=== PATIENT | female | born 1970 ===

== ENCOUNTER 2020-02-19 17:28 | Outpatient (REF) | payer OTHER, SELFPAY | END 2020-02-19 17:29 | disposition home or self-care (01) | LOC: HO.LAB 17:28 | PROVIDERS: PCP Internal Medicine; Visit Provider Internal Medicine | DX: Z20.828 Contact with and (suspected) exposure to other viral communicable diseases (principal) | CPT/HCPCS: 36415; U0003 ==

== ENCOUNTER 2022-02-21 15:15 | Emergency (ER) | payer OTHER, SELFPAY ==
--- NOTE | ~2022-02-21 | CT_ITS ---
EXAMINATION: CT ABDOMEN AND PELVIS WITHOUT CONTRAST CLINICAL INFORMATION: Lower abdominal pain and constipation COMPARISON: None TECHNIQUE: Multidetector volumetric imaging was performed from the superior aspect of the liver through the pubic symphysis. Sagittal and coronal reformatted images were obtained on the technologist's workstation. This CT examination was performed using dose optimization techniques as appropriate, variously including the following: *Automated exposure control *Adjustment of mA and/or kV according to patient size (this includes techniques or standardized protocols for targeted exams where dose is matched to indication/reason for exam; i.e. extremities or head) *Use of iterative reconstruction technique DLP: 408 mGy-cm FINDINGS: LUNG BASES: The visualized lung bases are unremarkable. LIVER, GALLBLADDER, AND BILIARY TREE: Right hepatic dome is clipped from the [id number]. There is a small 1.7 cm simple hepatic cyst in the medial segment of the left liver lobe. No other liver lesion. Normal hepatic attenuation. No biliary ductal dilation. Status post cholecystectomy. PANCREAS: Unremarkable. SPLEEN: Unremarkable. ADRENAL GLANDS: Unremarkable. KIDNEYS AND URETERS: The kidneys are normal in size, shape, and attenuation. No hydronephrosis, hydroureter, or calculi seen. No perinephric stranding. BLADDER: Unremarkable. GASTROINTESTINAL TRACT: Stomach and small bowel are nondilated. Moderate to large colonic stool burden. No dilated bowel loops. No bowel wall thickening. Normal appendix. No free air or ascites. ABDOMINAL WALL: No significant hernia is appreciated. LYMPH NODES: No lymphadenopathy. VASCULAR: Unremarkable. PELVIC VISCERA: Unremarkable. OSSEOUS STRUCTURES: No acute fracture or suspicious osseous lesion. Mild degenerative disc disease at L5-S1. CT/CT abdomen pelvis wo IV con IMPRESSION: 1. No acute intra-abdominal process identified. 2. Moderate to large colonic stool burden.
[2022-02-21 15:25] VITALS: BP 134/97; PULSE 87; RESP 18; TEMP 36.4; O2SAT 100; BMI 28.1
--- NOTE | 2022-02-21 15:26 | ED_ITS ---
HPI - Abdominal Pain General Chief Complaint: Abdominal Pain <JOEY Lowery - Last Filed: 02/21/22 15:29> Stated Complaint: abdominal pain <JOEY Lowery - Last Filed: 02/21/22 15:29> Time Seen by Provider: 02/21/22 18:29 <JOEY Lowery - Last Filed: 02/21/22 15:29> Source: patient <Miguelangel White MD - Last Filed: 02/21/22 19:09> Mode of arrival: ambulatory <Miguelangel White MD - Last Filed: 02/21/22 19:09> Limitations: no limitations <Miguelangel White MD - Last Filed: 02/21/22 19:09> History of Present Illness HPI narrative: 52-year-old female came in for evaluation of an abdominal pain for the past month. Pain is localized to the lower abdomen feels like cramps at an intermittent moderate in severity 08/20, patient been having change in her bowel movement habits used to go every other day until month ago now she is going once a week with a very hard stool last bowel movement was yesterday with a hard stool patient noticed bright red blood with the stool yesterday, no nausea, no vomiting in particular no vomiting blood. No loss or gain of weight. No urinary frequency, no hematuria, no dysuria. Never had intra-abdominal surgery, last colonoscopy was many years ago. <Miguelangel White MD - Last Filed: 02/21/22 19:09> Related Data Allergies/Adverse Reactions: Allergies Allergy/AdvReac Type Severity Reaction Status Date / Time No Known Allergies Allergy Verified 02/21/22 15:29 <JOEY Lowery - Last Filed: 02/21/22 15:29> Review of Systems Review of Systems All other systems are reviewed and are negative Constitutional: Reports as per HPI and Reports no additional constitutional complaints Eyes: Reports as per HPI and Reports no additional eye complaints Reports system reviewed and no additional complaints, except as documented Cardiovascular: Reports as per HPI and Reports no additional cardiovascular complaints Respiratory: Reports as per HPI and Reports no additional respiratory complaints Gastrointestinal: Reports as per HPI and Reports no additional gastrointestinal complaints Genitourinary: Reports no additional female genitourinary complaints Musculoskeletal: Reports no additional musculoskeletal complaints Skin/Breast: Reports system reviewed and no additional complaints, except as docu Psychiatric: Reports no additional psychiatric complaints Endocrine: Reports no additional endocrine complaints Hematologic/Lymphatic: Reports no additional hematologic/lymphatic complaints Allergic/Immunologic: Reports no additional allergic/immunologic complaints Reports system reviewed and no additional complaints, except as documented and Reports Abnormal speech present <Miguelangel White MD - Last Filed: 02/21/22 19:09> [facility] Social History Social History: Social History Advance Directives: No Advance Directives Information Provided: No <JOEY Lowery - Last Filed: 02/21/22 15:29> Physical Exam ED Vital Signs: Vital Signs - 24 hr 02/21/22 15:25 Temperature 97.5 F Pulse Rate 87 Respiratory Rate 18 Blood Pressure 134/97 H Pulse Oximetry 100 Oxygen Delivery Method Room Air BMI result Body Mass Index 28.1 <JOEY Lowery - Last Filed: 02/21/22 15:29> Vital Signs - 24 hr 02/21/22 15:25 Temperature 97.5 F Pulse Rate 87 Respiratory Rate 18 Blood Pressure 134/97 H Pulse Oximetry 100 Oxygen Delivery Method Room Air BMI result Body Mass Index 28.1 Vital signs have been reviewed as appeared to be correct. Blood pressure normal. Heart rate normal. Respiration rate normal. Temperature normal. Oxygen saturation normal. <Miguelangel White MD - Last Filed: 02/21/22 19:09> Appearance: Alert. Oriented X3. No acute distress. Head: Normal external exam. Normocephalic. Atraumatic. No Collins signs noted. No raccoon eyes noted Eyes: PERRLA. EOMI. Conjunctiva and sclera normal. Eyelids normal. ENT: TM's Normal. Pharynx normal. Uvula midline. Moist mucous membranes. No trismus noted. No drooling noted. No muffled voice noted. Neck: Normal inspection. Neck supple. FROM. No adenopathy. Thyroid Normal. No meningeal signs. No neck mass noted. CVS: Normal heart rate and rhythm. Heart sound normal. No murmurs noted. Pulses normal throughout. Respiratory: No respiratory distress. Painless inspiration. Breath sounds normal. No wheezes/rales/rhonchi noted. Chest nontender. No accessory muscle usage noted or decreased air movement noted. Abdomen: Soft and nontender. Bowel sounds normal in all 4 quadrants. No distention noted. No organomegaly noted. No visible injury noted. Rectal exam: No stool in the vault, no external or internal hemorrhoid, no blood in the stool. Back: No CVA tenderness. Full range of motion noted. Skin: Skin warm and dry. Normal skin color. Normal skin turgor. No ra shes/lesions/lacerations noted. Extremities: No lower extremity edema. Extremities exhibit normal range of motion. Extremities nontender. Neuro: Oriented X 3. Cranial nerve exam: II-XII are grossly intact No motor deficit. No sensory deficit. Reflexes normal. <Miguelangel White MD - Last Filed: 02/21/22 19:09> Course Course Course Narrative: RME - 52 yo female with history of DM and HTN presents to the ER for evaluation of intermittent lower abdominal pains and constipation for the last 1 month. She reports only have 3 BMS in the last 1 month. Has dark and red blood in her stools last night. Will get labs and CT scan for further evaluation. <JOEY Lowery - Last Filed: 02/21/22 15:29> Reevaluation(s) Reevaluation #1: 52-year-old female with recent change in the bowel movement habits patient is more frequently constipated, no history of loss or gain weight. No nausea, no vomiting CT is consistent with constipation no active GI bleeding. Will give 1 dose of milk of magnesia in the ED discharge to follow-up with g astroenterologist as an outpatient to consider colonoscopy. <Miguelangel White MD - Last Filed: 02/21/22 19:09> Time: 19:02 <Miguelangel White MD - Last Filed: 02/21/22 19:09> Medical Decision Making Differential Diagnosis Differential Diagnoses: The differential diagnosis associated with the presentation includes (Constipation, SBO, acute appendicitis, UTI, pyelonephritis, pancreatitis, hepatobiliary disease.) <Miguelangel White MD - Last Filed: 02/21/22 19:09> Lab Data MDM Lab Attestation statement: I reviewed the patient's lab results. <Miguelangel White MD - Last Filed: 02/21/22 19:09> Result Diagrams: 02/21/22 17:45 02/21/22 17:45 <JOEY Lowery - Last Filed: 02/21/22 15:29> Labs: Lab Results 02/21/22 02/21/22 02/21/22 Range/Units 17:45 17:45 17:57 WBC 6.9 (4.8-10.8) X10*3/uL RBC 5.31 (4.20-5.50) X10*6/uL Hgb 13.2 (12.0-16.0) g/dl Hct 42.3 (37.0-47.0) % MCV 79.7 L (80.0-98.0) fL MCH 24.9 L (27.0-33.0) pg MCHC 31.2 (31.0-35.0) g/dl RDW 15.0 (11.0-16.0) % Plt Count 294 (160-400) X10*3/uL MPV 8.8 L (9.4-12.3) fL Immature Gran % (Auto) 0.3 (0.0-0.4) % Neut % (Auto) 47.1 (45-73) % Lymph % (Auto) 43.0 H (20-40) % [place] % (Auto) 7.2 (2-11) % Eos % (Auto) 2.3 (0-4) % Baso % (Auto) 0.1 (0-2) % Lymph # (Auto) 3.0 (1.2-4.9) X10*3/uL [place] # (Auto) 0.5 (0.1-1.2) X10*3/uL Eos # (Auto) 0.2 (0.0-0.4) X10*3/uL Baso # (Auto) 0.0 (0.0-0.2) X10*3/uL Abs Immat Gran (auto) 0.02 (0.00-0.03) X10*3/uL Absolute Neuts (auto) 3.3 (2.0-8.3) x10*3/uL Absolute Nucleated RBC 0.000 (0.0-0.012) X10*3/uL Nucleated RBC % (auto) 0.0 (0.0-0.2) /100WBC Sodium 140 (135-145) mmol/L Potassium 4.4 (3.3-5.1) mmol/L Chloride 103 (96-108) mmol/L Carbon Dioxide 29 (22-29) mmol/L Anion Gap 12 (12-20) BUN 15 (9-16) mg/dL Creatinine 0.77 (0.5-1.4) mg/dL Estim Creat Clear Calc 79.1 Estimated GFR > 60 Random Glucose 143 H (60-115) mg/dL Calcium 10.7 H (8.4-10.2) mg/dL Magnesium 1.9 (1.6-2.6) mg/dL Total Bilirubin 0.2 (0.0-1.0) mg/dL Direct Bilirubin < 0.2 (0.0-0.5) mg/dL AST 33 H (5-31) U/L ALT 75 H (0-31) U/L Alkaline Phosphatase 110 (39-117) U/L Total Protein 8.3 H (6.5-8.0) g/dL Albumin 4.6 (3.5-5.0) g/dL Urine Color Yellow Urine Appearance Clear Urine pH 6.0 (5.0-9.0) Ur Specific [place] 1.010 (1.005-1.025) Urine Protein Negative (Neg-Trace) mg/dL Urine Glucose (UA) Negative (Negative) mg/dL Urine Ketones Negative (Negative) mg/dL Urine Blood Negative (Negative) Urine Nitrite Negative (Negative) Ur Leukocyte Esterase Small (1+) H (Negative) Urine RBC 0-2 (0-2) /HPF Urine WBC 11-20 H (0-5) /HPF Ur Squamous Epith Cells 6-10 (0-2) /HPF Urine Bacteria 1+ (None Seen) Hyaline Casts 0-2 (0-2) /LPF Stool Occult Blood (NEGATIVE) 02/21/22 Range/Units 18:36 WBC (4.8-10.8) X10*3/uL RBC (4.20-5.50) X10*6/uL Hgb (12.0-16.0) g/dl Hct (37.0-47.0) % MCV (80.0-98.0) fL MCH (27.0-33.0) pg MCHC (31.0-35.0) g/dl RDW (11.0-16.0) % Plt Count (160-400) X10*3/uL MPV (9.4-12.3) fL Immature Gran % (Auto) (0.0-0.4) % Neut % (Auto) (45-73) % Lymph % (Auto) (20-40) % [place] % (Auto) (2-11) % Eos % (Auto) (0-4) % Baso % (Auto) (0-2) % Lymph # (Auto) (1.2-4.9) X10*3/uL [place] # (Auto) (0.1-1.2) X10*3/uL Eos # (Auto) (0.0-0.4) X10*3/uL Baso # (Auto) (0.0-0.2) X10*3/uL Abs Immat Gran (auto) (0.00-0.03) X10*3/uL Absolute Neuts (auto) (2.0-8.3) x10*3/uL Absolute Nucleated RBC (0.0-0.012) X10*3/uL Nucleated RBC % (auto) (0.0-0.2) /100WBC Sodium (135-145) mmol/L Potassium (3.3-5.1) mmol/L Chloride (96-108) mmol/L Carbon Dioxide (22-29) mmol/L Anion Gap (12-20) BUN (9-16) mg/dL Creatinine (0.5-1.4) mg/dL Estim Creat Clear Calc Estimated GFR Random Glucose (60-115) mg/dL Calcium (8.4-10.2) mg/dL Magnesium (1.6-2.6) mg/dL Total Bilirubin (0.0-1.0) mg/dL Direct Bilirubin (0.0-0.5) mg/dL AST (5-31) U/L ALT (0-31) U/L Alkaline Phosphatase (39-117) U/L Total Protein (6.5-8.0) g/dL Albumin (3.5-5.0) g/dL Urine Color Urine Appearance Urine pH (5.0-9.0) Ur Specific [place] (1.005-1.025) Urine Protein (Neg-Trace) mg/dL Urine Glucose (UA) (Negative) mg/dL Urine Ketones (Negative) mg/dL Urine Blood (Negative) Urine Nitrite (Negative) Ur Leukocyte Esterase (Negative) Urine RBC (0-2) /HPF Urine WBC (0-5) /HPF Ur Squamous Epith Cells (0-2) /HPF Urine Bacteria (None Seen) Hyaline Casts (0-2) /LPF Stool Occult Blood NEGATIVE (NEGATIVE) <JOEY Lowery - Last Filed: 02/21/22 15:29> Lab Results 02/21/22 02/21/22 02/21/22 Range/Units 17:45 17:45 17:57 WBC 6.9 (4.8-10.8) X10*3/uL RBC 5.31 (4.20-5.50) X10*6/uL Hgb 13.2 (12.0-16.0) g/dl Hct 42.3 (37.0-47.0) % MCV 79.7 L (80.0-98.0) fL MCH 24.9 L (27.0-33.0) pg MCHC 31.2 (31.0-35.0) g/dl RDW 15.0 (11.0-16.0) % Plt Count 294 (160-400) X10*3/uL MPV 8.8 L (9.4-12.3) fL Immature Gran % (Auto) 0.3 (0.0-0.4) % Neut % (Auto) 47.1 (45-73) % Lymph % (Auto) 43.0 H (20-40) % [place] % (Auto) 7.2 (2-11) % Eos % (Auto) 2.3 (0-4) % Baso % (Auto) 0.1 (0-2) % Lymph # (Auto) 3.0 (1.2-4.9) X10*3/uL [place] # (Auto) 0.5 (0.1-1.2) X10*3/uL Eos # (Auto) 0.2 (0.0-0.4) X10*3/uL Baso # (Auto) 0.0 (0.0-0.2) X10*3/uL Abs Immat Gran (auto) 0.02 (0.00-0.03) X10*3/uL Absolute Neuts (auto) 3.3 (2.0-8.3) x10*3/uL Absolute Nucleated RBC 0.000 (0.0-0.012) X10*3/uL Nucleated RBC % (auto) 0.0 (0.0-0.2) /100WBC Sodium 140 (135-145) mmol/L Potassium 4.4 (3.3-5.1) mmol/L Chloride 103 (96-108) mmol/L Carbon Dioxide 29 (22-29) mmol/L Anion Gap 12 (12-20) BUN 15 (9-16) mg/dL Creatinine 0.77 (0.5-1.4) mg/dL Estim Creat Clear Calc 79.1 Estimated GFR > 60 Random Glucose 143 H (60-115) mg/dL Calcium 10.7 H (8.4-10.2) mg/dL Magnesium 1.9 (1.6-2.6) mg/dL Total Bilirubin 0.2 (0.0-1.0) mg/dL Direct Bilirubin < 0.2 (0.0-0.5) mg/dL AST 33 H (5-31) U/L ALT 75 H (0-31) U/L Alkaline Phosphatase 110 (39-117) U/L Total Protein 8.3 H (6.5-8.0) g/dL Albumin 4.6 (3.5-5.0) g/dL Urine Color Yellow Urine Appearance Clear Urine pH 6.0 (5.0-9.0) Ur Specific [place] 1.010 (1.005-1.025) Urine Protein Negative (Neg-Trace) mg/dL Urine Glucose (UA) Negative (Negative) mg/dL Urine Ketones Negative (Negative) mg/dL Urine Blood Negative (Negative) Urine Nitrite Negative (Negative) Ur Leukocyte Esterase Small (1+) H (Negative) Urine RBC 0-2 (0-2) /HPF Urine WBC 11-20 H (0-5) /HPF Ur Squamous Epith Cells 6-10 (0-2) /HPF Urine Bacteria 1+ (None Seen) Hyaline Casts 0-2 (0-2) /LPF Stool Occult Blood (NEGATIVE) 02/21/22 Range/Units 18:36 WBC (4.8-10.8) X10*3/uL RBC (4.20-5.50) X10*6/uL Hgb (12.0-16.0) g/dl Hct (37.0-47.0) % MCV (80.0-98.0) fL MCH (27.0-33.0) pg MCHC (31.0-35.0) g/dl RDW (11.0-16.0) % Plt Count (160-400) X10*3/uL MPV (9.4-12.3) fL Immature Gran % (Auto) (0.0-0.4) % Neut % (Auto) (45-73) % Lymph % (Auto) (20-40) % [place] % (Auto) (2-11) % Eos % (Auto) (0-4) % Baso % (Auto) (0-2) % Lymph # (Auto) (1.2-4.9) X10*3/uL [place] # (Auto) (0.1-1.2) X10*3/uL Eos # (Auto) (0.0-0.4) X10*3/uL Baso # (Auto) (0.0-0.2) X10*3/uL Abs Immat Gran (auto) (0.00-0.03) X10*3/uL Absolute Neuts (auto) (2.0-8.3) x10*3/uL Absolute Nucleated RBC (0.0-0.012) X10*3/uL Nucleated RBC % (auto) (0.0-0.2) /100WBC Sodium (135-145) mmol/L Potassium (3.3-5.1) mmol/L Chloride (96-108) mmol/L Carbon Dioxide (22-29) mmol/L Anion Gap (12-20) BUN (9-16) mg/dL Creatinine (0.5-1.4) mg/dL Estim Creat Clear Calc Estimated GFR Random Glucose (60-115) mg/dL Calcium (8.4-10.2) mg/dL Magnesium (1.6-2.6) mg/dL Total Bilirubin (0.0-1.0) mg/dL Direct Bilirubin (0.0-0.5) mg/dL AST (5-31) U/L ALT (0-31) U/L Alkaline Phosphatase (39-117) U/L Total Protein (6.5-8.0) g/dL Albumin (3.5-5.0) g/dL Urine Color Urine Appearance Urine pH (5.0-9.0) Ur Specific [place] (1.005-1.025) Urine Protein (Neg-Trace) mg/dL Urine Glucose (UA) (Negative) mg/dL Urine Ketones (Negative) mg/dL Urine Blood (Negative) Urine Nitrite (Negative) Ur Leukocyte Esterase (Negative) Urine RBC (0-2) /HPF Urine WBC (0-5) /HPF Ur Squamous Epith Cells (0-2) /HPF Urine Bacteria (None Seen) Hyaline Casts (0-2) /LPF Stool Occult Blood NEGATIVE (NEGATIVE) <Miguelangel White MD - Last Filed: 02/21/22 19:09> Independent Interpretation I performed an independent interpretation of an: CT Scan (Abdomen and pelvis:1. No acute intra-abdominal process identified. 2. Moderate to large colonic stool burden. ) <Miguelangel White MD - Last Filed: 02/21/22 19:09> Radiology Impression Discussion of test interpretation with radiology: I have reviewed the radiologist's reading. <Miguelangel White MD - Last Filed: 02/21/22 19:09> Discharge Plan Discharge Clinical Impression: Constipation <JOEY Lowery - Last Filed: 02/21/22 15:29> Patient Disposition: Home, Self-Care <JOEY Lowery - Last Filed: 02/21/22 15:29> Instructions: Constipation (ED) <JOEY Lowery - Last Filed: 02/21/22 15:29> Referrals: Kathleen Carranza MD [Primary Care Provider] - Kehinde Thomas MD [Physician] - <JOEY Lowery - Last Filed: 02/21/22 15:29> Stand Alone Forms: Work/School Release <JOEY Lowery - Last Filed: 02/21/22 15:29>
[2022-02-21 17:59] LABS: MANUAL DIFF FLAG NO
[2022-02-21 18:01] LABS: Basophils Percent Auto 0.1 % (0-2); Eosinophils Absolute Auto 0.2 X10*3/uL (0.0-0.4); Eosinophils Percent Auto 2.3 % (0-4); Hematocrit 42.3 % (37.0-47.0); Hemoglobin 13.2 g/dl (12.0-16.0); Imm Gran Abs Auto 0.02 X10*3/uL (0.00-0.03); Imm Gran Pct Auto 0.3 % (0.0-0.4); Mean Corpuscular HGB Conc 31.2 g/dl (31.0-35.0); Mean Corpuscular Hemoglobin 24.9 pg (27.0-33.0); Mean Corpuscular Volume 79.7 fL (80.0-98.0); Mean Platelet Volume 8.8 fL (9.4-12.3); Monocytes Absolute Auto 0.5 X10*3/uL (0.1-1.2); Monocytes Percent Auto 7.2 % (2-11); Neutrophils Absolute Auto 3.3 x10*3/uL (2.0-8.3); Neutrophils Percent Auto 47.1 % (45-73); Platelet Count 294 X10*3/uL (160-400); Red Blood Count 5.31 X10*6/uL (4.20-5.50); White Blood Count 6.9 X10*3/uL (4.8-10.8)
[2022-02-21 18:19] LABS: Appearance Urine Clear; Color Urine Yellow; Glucose Urine UA Negative (Negative); Leukocyte Esterase Urine Small (1+) (Negative); Nitrite Urine Negative (Negative); UMIC TRIGGER UACC YES; Urine Blood Negative (Negative); Urine Ketones Negative (Negative); Urine Protein Negative (Neg-Trace)
[2022-02-21 18:23] LABS: Bacteria Urine 1+ (None Seen); Hyaline Casts Urine 0-2 /LPF (0-2); RBC Urine 0-2 /HPF (0-2); UACC Culture Trigger YES
[2022-02-21 18:43] LABS: Alanine Aminotransferase 75 U/L (0-31); Albumin Level 4.6 g/dL (3.5-5.0); Alkaline Phosphatase 110 U/L (39-117); Anion Gap 12 (12-20); Aspartate Amino Transferase 33 U/L (5-31); Bilirubin Direct < 0.2 mg/dL (0.0-0.5); Bilirubin Total 0.2 mg/dL (0.0-1.0); Blood Urea Nitrogen 15 mg/dL (9-16); Calcium 10.7 mg/dL (8.4-10.2); Carbon Dioxide 29 mmol/L (22-29); Chloride 103 mmol/L (96-108); Creatinine Clr Calc Pharmacy 79.1; Estimated Glomerular Filt Rate > 60; Glucose Random 143 mg/dL (60-115); Magnesium 1.9 mg/dL (1.6-2.6); Potassium 4.4 mmol/L (3.3-5.1); Sodium 140 mmol/L (135-145); Total Protein 8.3 g/dL (6.5-8.0)
[2022-02-21 18:50] LABS: OBS Int Ctl Valid YES; OBS1 NEGATIVE (NEGATIVE)
[2022-02-21] MEDS: Milk of Magnesia 30 ML ORAL.SUSP PO (19:22)
[2022-02-21] MEDS: Nitrofurantoin Monohyd/M-Cryst 100 MG CAPSULE PO (19:22)
== END 2022-02-21 19:30 | disposition home or self-care (01) ==
PROVIDERS: Physician Assistant; Emergency Provider Emergency Medicine; PCP Internal Medicine
DX: K59.00 Constipation, unspecified (principal); I10 Essential (primary) hypertension; Z79.899 Other long term (current) drug therapy
CPT/HCPCS: 36415; 74176; 80048; 80076; 81001; 82272; 83735; 85025; 87086; 99282; 99284

== ENCOUNTER 2022-10-15 13:42 | Emergency (ER) | payer OTHER, SELFPAY ==
[2022-10-15 14:12] VITALS: BP 130/85; PULSE 104; RESP 16; TEMP 37.2; O2SAT 97; BMI 28.0
--- NOTE | 2022-10-15 14:13 | ED_ITS ---
HPI - General Adult General Chief complaint: Upper Respiratory Symptoms Stated complaint: body aches headache sore throat Time Seen by Provider: 10/15/22 16:48 Source: patient and RN notes reviewed Mode of arrival: ambulatory Limitations: no limitations History of Present Illness HPI narrative: This is a 52-year-old female presenting to the emergency department with complaints of headache, sore throat, nasal congestion, cough, subjective fevers, and body aches x 2 days. Patient reports that her son was diagnosed with strep throat over the weekend and she is concerned that she also has this. She has been taking ibuprofen inconsistently for her symptoms which has provided her with some relief. Patient denies any chest pain or shortness of breath. Denies abdominal pain, nausea, vomiting, or diarrhea. No other complaints or concerns at this time. complaint: COVID Onset (ago): day(s) Quality: aching Pain Consistency: constant Relieving factors: none Exacerbating factors: none Associated symptoms: cough, fever/chills and headaches Treatments prior to arrival: none Related Data Previous Rx's Medication Instructions Recorded nitrofurantoin 100 mg PO Q12H 7 days #14 caps 02/21/22 monohydrate/macrocrystals 100 mg capsule (Macrobid) acetaminophen 500 mg tablet 1,000 mg PO QID PRN fever or pain 10/15/22 (Tylenol Extra Strength) #45 tabs ibuprofen 600 mg tablet 600 mg PO Q6H PRN fever or pain 10/15/22 #45 tabs Allergies Allergy/AdvReac Type Severity Reaction Status Date / Time No Known Allergies Allergy Verified 10/15/22 14:15 Review of Systems Review of Systems: Yes all other systems are reviewed and are negative Constitutional: Constitutional: Reports as per [facility] Social History Social History Advance Directives: No Advance Directives Information Provided: No Physical Exam ED Vital Signs: Vital Signs - 24 hr 10/15/22 14:12 Temperature 98.9 F Pulse Rate 104 H Respiratory Rate 16 Blood Pressure 130/85 Pulse Oximetry 97 Oxygen Delivery Method Room Air BMI result Body Mass Index 28.0 Const General: cooperative, comfortable and no acute distress Orientation/consciousness: patient oriented x3 Limitations: no limitations HENMT Other: Oropharynx is non erythematous, no tonsillar hypertrophy or exudates. Uvula is midline. Handling secretions well without any trismus, drooling, or dysphonia. Head: Yes normal to inspection, Yes normocephalic and Yes atraumatic Ears: hearing grossly normal bilaterally and TM's normal bilaterally General nose exam: Normal external nose present Face and sinus: Yes normal facial exam Mouth: Normal oral and palatal mucosa present, oropharynx normal and moist mucous membranes Throat: Yes posterior oropharynx normal Eyes General: appearance normal, both eyes and all related structures Eyelids: Yes eyelids normal Conjunctivae: conjunctivae normal Sclerae: sclerae normal Pupils: Equal, round and reactive pupils present EOM: EOMs intact bilaterally Neck Neck: Yes normal visual inspection, Yes full ROM and Yes no lymphadenopathy Lymphatic: no lymphadenopathy noted Chest Chest palpation & inspection: normal inspection of the chest Resp Effort & Inspection: normal respiratory effort and able to speak in complete sentences Auscultation: clear to auscultation bilaterally, no crackles, no rales, no rhonchi and no wheezes Cardio Rate: regular rate Rhythm: regular rhythm Heart sounds: S1 normal heart sound present and S2 normal heart sound present GI Inspection: Yes normal to inspection Skin General skin exam: no rashes or lesions noted Trauma: no lacerations or abrasions Wounds: no wounds Neuro General: patient oriented x3 and moves all extremities Cranial nerves: Yes Equal, round and reactive pupils present Extrem General: Yes normal to inspection Right upper extremity: normal to inspection Left upper extremity: normal to inspection Right lower extremity: normal to inspection Left lower extremity: normal to inspection Course Course Course Narrative: This is a rapid medical exam: Additional HPI, ROS, PE not included below will be deferred to primary provider. Patient is a 52-year-old female presenting to the emergency department with complaint of cough producive of clear sputum, sore throat, headaches, fever, and nasal congestion since Saturday. States son was recently treated for strep throat. was able to work this morning. Took ibuprofen for symptoms today. Plan: Covid/flu, strep Medical Decision Making Medical Decision Making [facility] Narrative: 52-year-old female presenting to the emergency department for evaluation of headache, sore throat, congestion, cough, subjective fevers and body aches x2 days. On arrival, patient mildly tachycardic at 104bpm otherwise all vital signs are within normal limits. Presentation he concerning for influenza versus COVID versus strep pharyngitis. Lungs are clear to auscultation, patient is under no acute distress. Handling secretions well, oropharynx is mildly erythematous without any evidence of peritonsillar abscess or tonsillar hypertrophy. Swabs were collected, patient positive for COVID-19. Discussed these results with patient. Discharge with ibuprofen and Tylenol, given quarantine precautions. Advised to return any new or worsening symptoms. Patient understands and agrees with plan. Patient stable for discharge. Differential Diagnosis Differential Diagnoses: The differential diagnosis associated with the presentation includes See above Lab Data MDM Lab Attestation statement: I reviewed the patient's lab results. COVID positive Labs: Lab Results 10/15/22 10/15/22 10/15/22 Range/Units 14:28 14:28 14:28 COVID-19 ([facility]) Positive A (Negative) COVID-19 Clin Com See Note Influenza Type A ([facility]) Negative (Negative) Influenza Type B ([facility]) Negative (Negative) Influenza A & B Note See Note S. pyogenes GrpA [facility] Negative (Negative) Discharge Plan Discharge Clinical Impression: COVID-19 Patient Disposition: Home, Self-Care Additional Instructions: You tested positive for COVID today. You tested negative for flu, and strep throat COVID is a virus that you treat symptomatically, you do not need antibiotics for this. Take ibuprofen and Tylenol, alternate between these medications. You can take ibuprofen 600 mg every 6 hours, and Tylenol 1g every 8 hours. Please space out ibuprofen and Tylenol dosage with 2 hours of between. If any new or worsening symptoms occur, including but not limited to shortness of breath, or chest pain, please return for re-evaluation. You should be self isolating for the next 5 days. After the 5th day you may going to the public however wear mask if your having symptoms. Please follow all CDC guidelines for further recommendations. Prescriptions: New ibuprofen 600 mg tablet 600 mg PO Q6H PRN (Reason: fever or pain) Qty: 45 0RF acetaminophen [Tylenol Extra Strength] 500 mg tablet 1,000 mg PO QID PRN (Reason: fever or pain) Qty: 45 0RF No Action nitrofurantoin monohyd/m-cryst [Macrobid] 100 mg capsule 100 mg PO Q12H 7 Days Qty: 14 0RF Rx Instructions: must administer with a meal/food Stand Alone Forms: Work/School Release Interventions: ED Discharge Assessment Last Done: 10/15/22 18:16 Discharge Date/Time: 10/15/22 18:16
[2022-10-15 14:52] LABS: IDNOW Serial# 08D9AD1C; Strep A Nucleic Acid Negative (Negative)
[2022-10-15 14:53] LABS: COVID-19 Test Positive (Negative); IDNOW Serial# BCCEAD1C
[2022-10-15 14:57] LABS: IDNOW Serial# 9DB6401D; Influenza A Negative (Negative); Influenza B2 Negative (Negative)
== END 2022-10-15 18:16 | disposition home or self-care (01) ==
PROVIDERS: Registered Nurse Emergency; Emergency Provider Emergency Medicine; PCP Internal Medicine
DX: U07.1 COVID-19 (principal); M79.10 Myalgia, unspecified site; R51.9 Headache, unspecified; R05.9 Cough, unspecified; R50.9 Fever, unspecified; Z79.899 Other long term (current) drug therapy
CPT/HCPCS: 87502; 87635; 87651; 99282; 99283

== ENCOUNTER 2023-01-29 15:59 | Emergency (ER) | payer OTHER, SELFPAY ==
--- NOTE | 2023-01-29 16:01 | ED.GENADULT ---
HPI - General Adult General Chief complaint: General Medical Stated complaint: chest pain Related Data Previous Rx's ?Medication ?Instructions ?Recorded nitrofurantoin 100 mg PO Q12H 7 days #14 caps 02/21/22 monohydrate/macrocrystals 100 mg capsule (Macrobid) acetaminophen 500 mg tablet 1,000 mg (2 x 500 mg) PO QID PRN 10/15/22 (Tylenol Extra Strength) fever or pain #45 tabs ibuprofen 600 mg tablet 600 mg PO Q6H PRN fever or pain 10/15/22 #45 tabs Allergies Allergy/AdvReac Type Severity Reaction Status Date / Time No Known Allergies Allergy Verified 10/15/22 14:15 PENDING SALE TO [facility] Social History Social History Advance Directives: No Advance Directives Information Provided: No Physical Exam ED Vital Signs: BMI result Body Mass Index 29.8 Course Course Course Narrative: RME 53 year old female presents for evaluation of chest pain and abdominal pain. Plan for labs, EKG, chest x-ray, UA Medical Decision Making Lab Data 01/29/23 16:31 01/29/23 16:31 Labs: Lab Results 01/29/23 Range/Units 16:31 WBC 5.8 (4.8-10.8) X10*3/uL RBC 4.55 (4.20-5.50) X10*6/uL Hgb 12.3 (12.0-16.0) g/dl Hct 38.1 (37.0-47.0) % MCV 83.7 (80.0-98.0) fL MCH 27.0 (27.0-33.0) pg MCHC 32.3 (31.0-35.0) g/dl RDW 14.4 (11.0-16.0) % Plt Count 248 (160-400) X10*3/uL MPV 8.6 L (9.4-12.3) fL Immature Gran % (Auto) 0.3 (0.0-0.4) % Neut % (Auto) 47.0 (45-73) % Lymph % (Auto) 42.1 H (20-40) % Calhoun % (Auto) 8.3 (2-11) % Eos % (Auto) 2.1 (0-4) % Baso % (Auto) 0.2 (0-2) % Lymph # (Auto) 2.4 (1.2-4.9) X10*3/uL Calhoun # (Auto) 0.5 (0.1-1.2) X10*3/uL Eos # (Auto) 0.1 (0.0-0.4) X10*3/uL Baso # (Auto) 0.0 (0.0-0.2) X10*3/uL Abs Immat Gran (auto) 0.02 (0.00-0.03) X10*3/uL Absolute Neuts (auto) 2.7 (2.0-8.3) x10*3/uL Absolute Nucleated RBC 0.000 (0.0-0.012) X10*3/uL Nucleated RBC % (auto) 0.0 (0.0-0.2) /100WBC PT 11.2 (11.1-13.3) SEC INR 0.9 (0.9-1.1) Sodium 140 (135-145) mmol/L Potassium 4.2 (3.3-5.1) mmol/L Chloride 107 (96-108) mmol/L Carbon Dioxide 26 (22-29) mmol/L Anion Gap 11 L (12-20) BUN 14 (9-16) mg/dL Creatinine 0.84 (0.5-1.4) mg/dL Estim Creat Clear Calc 67.9 Estimated GFR > 60 Random Glucose 142 H (60-115) mg/dL Calcium 9.8 D (8.4-10.2) mg/dL Total Bilirubin 0.1 (0.0-1.0) mg/dL AST 48 H (5-31) U/L ALT 98 H (0-31) U/L Alkaline Phosphatase 76 (39-117) U/L Troponin I High Sens < 2.7 (<3.5-17.0) ng/L Total Protein 7.7 (6.5-8.0) g/dL Albumin 4.3 (3.5-5.0) g/dL Lipase 57 (8-78) U/L Discharge Plan Discharge Clinical Impression: Chest pain Patient Disposition: Left W/O Completing Treatment Prescriptions: No Action nitrofurantoin monohyd/m-cryst [Macrobid] 100 mg capsule 100 mg PO Q12H 7 Days Qty: 14 0RF Rx Instructions: must administer with a meal/food ibuprofen 600 mg tablet 600 mg PO Q6H PRN (Reason: fever or pain) Qty: 45 0RF acetaminophen [Tylenol Extra Strength] 500 mg tablet 1,000 mg PO QID PRN (Reason: fever or pain) Qty: 45 0RF Discharge Date/Time: 01/29/23 17:53
[2023-01-29 16:35] VITALS: BP 131/89; PULSE 75; RESP 18; TEMP 36.7; O2SAT 98; BMI 29.8
[2023-01-29 16:36] LABS: MANUAL DIFF FLAG NO
[2023-01-29 16:39] LABS: Basophils Percent Auto 0.2 % (0-2); Eosinophils Absolute Auto 0.1 X10*3/uL (0.0-0.4); Eosinophils Percent Auto 2.1 % (0-4); Hematocrit 38.1 % (37.0-47.0); Hemoglobin 12.3 g/dl (12.0-16.0); Imm Gran Abs Auto 0.02 X10*3/uL (0.00-0.03); Imm Gran Pct Auto 0.3 % (0.0-0.4); Lymphocytes Absolute Auto 2.4 X10*3/uL (1.2-4.9); Lymphocytes Percent Auto 42.1 % (20-40); Mean Corpuscular HGB Conc 32.3 g/dl (31.0-35.0); Mean Corpuscular Volume 83.7 fL (80.0-98.0); Mean Platelet Volume 8.6 fL (9.4-12.3); Monocytes Absolute Auto 0.5 X10*3/uL (0.1-1.2); Monocytes Percent Auto 8.3 % (2-11); Neutrophils Absolute Auto 2.7 x10*3/uL (2.0-8.3); Platelet Count 248 X10*3/uL (160-400); Red Blood Count 4.55 X10*6/uL (4.20-5.50); Red Cell Distribution Width 14.4 % (11.0-16.0); White Blood Count 5.8 X10*3/uL (4.8-10.8)
[2023-01-29 16:45] LABS: INTERNATIONAL NORM RATIO 0.9 (0.9-1.1); Prothrombin Time 11.2 SEC (11.1-13.3)
[2023-01-29 16:52] LABS: Alanine Aminotransferase 98 U/L (0-31); Albumin Level 4.3 g/dL (3.5-5.0); Alkaline Phosphatase 76 U/L (39-117); Anion Gap 11 (12-20); Aspartate Amino Transferase 48 U/L (5-31); Bilirubin Total 0.1 mg/dL (0.0-1.0); Blood Urea Nitrogen 14 mg/dL (9-16); Calcium 9.8 mg/dL (8.4-10.2); Carbon Dioxide 26 mmol/L (22-29); Chloride 107 mmol/L (96-108); Creatinine Clr Calc Pharmacy 67.9; Estimated Glomerular Filt Rate > 60; Glucose Random 142 mg/dL (60-115); Lipase 57 U/L (8-78); Potassium 4.2 mmol/L (3.3-5.1); Sodium 140 mmol/L (135-145); Total Protein 7.7 g/dL (6.5-8.0)
[2023-01-29 17:01] LABS: Troponin-I High Sensitivity < 2.7 ng/L (<3.5-17.0)
== END 2023-01-29 17:53 | disposition left against medical advice (07) ==
PROVIDERS: Physician Assistant; Emergency Provider Emergency Medicine; PCP Internal Medicine
DX: R07.89 Other chest pain (principal); Z79.899 Other long term (current) drug therapy
CPT/HCPCS: 36415; 80053; 83690; 84484; 85025; 85610; 99281; 99283

== ENCOUNTER 2023-09-19 08:49 | Outpatient (AMB) | payer OTHER, SELFPAY ==
--- NOTE | 2023-09-19 08:55 | A.OFFVIS_ITS ---
Vital Signs 09/19/23 08:56 Height 5 ft Weight 150 lb 2.157 oz BMI 29.3 BP 124/72 Blood Pressure Location Rt brachial Position Sitting Pulse 73 Pulse Source Pulse Oximeter Pulse Oximetry (%) 96 Oxygen Delivery Method Room Air Intake Visit Reasons: Joint Pain/CM Intake Note: Patient is here as a new patient, presents of joint pain in legs, feet, and left arm. She states she has had cortisone shots that help. Allergies No Known Allergies Allergy (Verified 09/19/23 08:59) Medication List - Last Reconciled 09/19/23 by Richelle Pinto MD acetaminophen (Tylenol Extra Strength) 1,000 mg (2 x 500 mg) PO QID PRN ibuprofen 600 mg PO Q6H PRN nitrofurantoin monohyd/m-cryst 100 mg (Macrobid) 100 mg PO Q12H 7 days HPI Comments Details: This is a 53-year-old female who presents for evaluation of multiple joint pain. For about 2 years patient has been complaining of low back pain, left knee pain and left ankle pain. The pain starts in the morning and associated with stiffness for 1 hour, the pain gets worse with activity. Patient works as a [employer]. She did not notice any swelling. She states that she sprained her left ankle while going down the stairs about a year ago but she did not require any specific treatment. She states that she took ibuprofen 100 mg in the morning and naproxen at night as well as muscle relaxants. This combination of med icines gave her some relief. She denies any history suggestive of uveitis, colitis or psoriasis. He is unaware of any family history of an autoimmune rheumatic disease. Patient states that she currently feels well with no significant joint pain. Her joint pain seems to have self resolved [facility] Medical History (Updated 09/19/23 @ 09:25 by Richelle Pinto MD) Asthma GERD (gastroesophageal reflux disease) Iron deficiency anemia Menopausal symptom Type 2 diabetes mellitus Nausea and vomiting Abdominal pain Elevated liver enzymes Essential (primary) hypertension Microalbuminuria Anxiety Poorly controlled diabetes mellitus Pain in joints Surgical History S/P cholecystectomy History of esophagogastroduodenoscopy (EGD) Hx of colonoscopy Hx of tubal ligation S/P breast biopsy, right Family History Maternal Grandmother Diabetes Father H/O ETOH abuse ALC (alcoholic liver cirrhosis) Mother Diabetes Stroke Brother HTN (hypertension) Diabetes Skin cancer Unknown Lung cancer Pancreatic cancer Breast cancer Ovarian cancer Stroke Diabetes Social History Alcohol intake: current Alcohol intake frequency: holidays/special occasions only Patient Tobacco Use Status: Never used Tobacco Review of Systems Musc Reports back pain, Reports arthralgias, Denies joint swelling and Reports stiffness Skin/Breast Denies rash Physical Exam Vital Signs: Last Vital Signs Pulse 73 09/19/23 08:56 BP 124/72 09/19/23 08:56 Pulse Ox 96 09/19/23 08:56 Oxygen Delivery Method Room Air 09/19/23 08:56 BMI result Body Mass Index 29.3 Const General: cooperative, healthy appearing and comfortable Nutritional Appearance: overweight Orientation/consciousness: patient oriented x3 Limitations: no limitations HEENT Head: Yes normocephalic and Yes atraumatic Mouth: moist mucous membranes Resp Effort & Inspection: normal respiratory effort Auscultation: clear to auscultation bilaterally Cardio Rate: regular rate Rhythm: regular rhythm Skin General skin exam: no rashes or lesions noted Neuro General: patient oriented x3 Extrem Other: Osteoarthritic changes of both hands with no active synovitis Normal range of motion of hands, wrists, elbows and shoulders without pain Negative empty can test bilaterally Negative Speed's test bilaterally No nail pitting Normal nailfold capillaroscopy Negative straight leg raise test bilaterally Negative Fabere test bilaterally Bilateral knee crepitus . No knee pain with flexion-extension bilaterally No knee swelling or tenderness bilaterally No ankle swelling or tenderness bilaterally Venecia test 10-15 cm Results Reviewed Results Reviewed: ORTHO X-RAY FOOT (3 VIEWS) Exam Date: 05/31/2021 10:23 AM Ordering Diagnosis: Foot pain, bilateral ? ? Right foot 3 views weightbearing: Radiographs taken and reviewed. No evidence of cira abnormality noted. No evidence of fracture or dislocation noted. Mild narrowing of first metatarsal phalangeal joint appreciated. Mild arthrosis noted to dorsal midfoot, localized to midtarsal joints. Hammered digits noted to interphalangeal joints. Increase in metatarsal angle between 1st and 2nd ray. Accessory ossicles noted. No evidence of foreign body. No evidence of gas or soft tissue. No evidence of cortical erosion noted. ? Left foot 3 views weightbearing: Radiographs taken and reviewed. No evidence of cira abnormality noted. No evidence of fracture or dislocation noted. Mild narrowing of first metatarsal phalangeal joint appreciated. Mild arthrosis noted to dorsal midfoot, localized to midtarsal joints. Hammered digits noted to interphalangeal joints. Increase in metatarsal angle between 1st and 2nd ray. Accessory ossicles noted. No evidence of foreign body. No evidence of gas or soft tissue. No evidence of cortical erosion noted. X-RAY EXAM OF ELBOW, COMPLETE Exam Date: 04/30/2022 4:22 PM Ordering Diagnosis: ? ? Left elbow, 3 views. History pain. Comparison with previous examination from 07/18/2017. There is no evidence of fractures, dislocations or effusion. Alignment is maintained. ? CONCLUSIONS: Normal radiographs of the left elbow ? X-RAY EXAM OF ANKLE, COMPLETE Exam Date: 05/17/2022 2:20 PM Ordering Diagnosis: Chronic pain of left ankle ? HISTORY: left ankle pain, chronic ? TECHNIQUE: Three views radiographs of the left ankle ? COMPARISON: None ? FINDINGS: AP, lateral and oblique radiographs of the left ankle demonstrates normal bony mineralization with no fracture or malalignment. The ankle mortise is intact. ? IMPRESSION IMPRESSION: No fracture or dislocation of the left ankle. RADEX HIP UNILATERAL WITH PELVIS 2-3 VIEWS Exam Date: 07/04/2023 10:09 AM Ordering Diagnosis: Left hip pain ? PELVIS, SINGLE FRONTAL VIEW LEFT HIP, FRONTAL & FROG LEG LATERAL VIEWS ? HISTORY: Chronic left hip pain. ? PRIORS: AP pelvis and right hip 12/14/2014. ? FINDINGS: ? No acute fracture, malalignment, or soft tissue abnormality is seen. ? IMPRESSION IMPRESSION: Normal study. Labs 05/2022 CALIN/RF/Lyme screen all negative ESR normal Assessment & Plan Assessment & Plan (1) Pain in joints: Code(s): M25.50 - Pain in unspecified joint Category: Medical Plan: This is a 53-year-old female who presents for evaluation of multiple joint pain involving her back, left knee, left ankle, both feet, symptoms mostly degenerative and mechanical in nature however there are some features of inflammatory joint pain. Patient's symptoms however have self-resolved. Advised patient to return to clinic for any recurrence of symptoms Plan I spent 30 minutes reviewing patient's chart, evaluating patient, counseling patient and documenting in the chart Coding Level of Care Code New Pt Level 3 (80497) Diagnoses Pain in joints M25.50
[2023-09-19 08:56] VITALS: BP 124/72; PULSE 73; O2SAT 96; BMI 29.3
== END 2023-09-19 09:19 | disposition home or self-care (01) ==
PROVIDERS: PCP Internal Medicine; Visit Provider Student in an Organized Health Care Education/Training Program
DX: M25.50 Pain in unspecified joint (principal)
CPT/HCPCS: 99203

== ENCOUNTER → 2023-09-19 08:49 | Outpatient (BNVA) | payer OTHER, SELFPAY | PROVIDERS: PCP Internal Medicine; Visit Provider Student in an Organized Health Care Education/Training Program | DX: M25.50 Pain in unspecified joint (principal) | CPT/HCPCS: 99202 ==